=== PATIENT | female | born 1960 | race Asian ===

== ENCOUNTER 2020-08-14 12:33 | Inpatient (IN) | payer OTHER ==
[2020-08-14] VITALS (8 sets, daily range): BP systolic 100–178; BP diastolic 52–91
[~2020-08-14] VITALS: Ht 149.9 cm; Wt 100.3 kg
[2020-08-14 13:17] LABS: BASOPHILS % 0.3 % (0.0-2.0); EOSINOPHILS % 0.3 % (0.0-5.0); HEMATOCRIT. 35.8 % (36.0-48.0); HEMOGLOBIN. 11.8 g/dL (12.0-16.0); MEAN CORPUSCULAR VOLUME 90.9 fL (81.0-99.0); MEAN PLATELET VOLUME 8.4 fl (7.4-10.4); MONOCYTES % 8.1 % (2.0-8.0); NEUTROPHILS % 67.3 % (40.0-76.0); PLATELET 243 x1000/uL (130-400); RED BLOOD CELL COUNT 3.94 mill/uL (4.2-5.4); RED CELL DISTRIBUTION WIDTH 14.5 % (11.6-14.6)
[2020-08-14 13:23] LABS: CHLORIDE 94 mEq/L (98-107)
[2020-08-14] MEDS ORDERED: FUROSEMIDE 100MG/10ML VIAL IV STA (13:31)
[2020-08-14 13:32] LABS: BETA HYDROXYBUTYRATE 0.2 mMol/L (0.0-0.3)
[2020-08-14] MEDS ORDERED: CALCIUM CHLORIDE 1GM/10ML SYR IV ONE (13:45)
[2020-08-14] MEDS ORDERED: SODIUM BICARBONATE 8.4% 1 MEQ/ML 50ML SYR IV ONE (13:45)
[2020-08-14] MEDS ORDERED: INSULIN REGULAR (HUMULIN R) 300UNITS/3ML IV ONE (13:45)
[2020-08-14] MEDS ORDERED: SODIUM POLYSTYRENE SULFONATE 15 G/60 ML BOT PO ONE (13:45)
[2020-08-14] MEDS ORDERED: DEXTROSE 50% WATER 50ML SYRINGE IV ONE (13:45)
[2020-08-14 14:08] LABS: CLARITY URINE CLEAR (CLEAR); COLOR URINE YELLOW (YELLOW); KETONES URINE NEGATIVE (NEGATIVE); LEUKOCYTE ESTERASE URINE NEGATIVE (NEGATIVE); NITRITE URINE NEGATIVE (NEGATIVE); OCCULT BLOOD URINE NEGATIVE (NEGATIVE); PH URINE 6.5 (4.5-8.0); PROTEIN URINE NEGATIVE (NEGATIVE); SPECIFIC GRAVITY URINE 1.019 (1.005-1.030)
[2020-08-14 14:10] LABS: BG BASE EXCESS -0.7 mmol/L (-2.0-2.0); BG CARBOXYHEMOGLOBIN 0.4 % (0.5-1.5); BG FRACTION INSPIRED OXYGEN 28; BG HCO3 ACT 23.8 mmol/L (22.0-26.0); BG METHEMOGLOBIN 0.2 % (0.0-1.5); BG OXYHEMOGLOBIN 96.4 % (94.0-97.0); BG PCO2 39.2 mmHg (35.0-45.0); BG PH 7.402 (7.350-7.450); BG PO2 93.5 mmHg (75.0-100.0); BG SAMPLE SITE RIGHT RADIAL; BG TOTAL HEMOGLOBIN 12.7 g/dL (12.0-18.0); BG VENT MODE NASAL CANNULA
[2020-08-14] MEDS ORDERED: SODIUM BICARBONATE 8.4% 1 MEQ/ML 50ML SYR IV SCH (14:50)
[2020-08-14] MEDS ORDERED: BUDESONIDE 0.5MG/2ML NEB HHN SCH (18:00)
[2020-08-14] MEDS ORDERED: METF-816 PO (18:04)
[2020-08-14] MEDS ORDERED: FURO40TA5 MT (18:04)
[2020-08-14] MEDS ORDERED: ALBUTEROL SULFATE INH (18:04)
[2020-08-14] MEDS ORDERED: MONT10TA26 MT (18:04)
[2020-08-14] MEDS ORDERED: FAMO20TA8 MT (18:04)
[2020-08-14] MEDS ORDERED: INSU100I13 SQ (18:04)
[2020-08-14] MEDS ORDERED: ATOR-2 MT (18:04)
[2020-08-14] MEDS ORDERED: VITAMIN D PO (18:04)
[2020-08-14] MEDS ORDERED: LISI-604 MT (18:04)
[2020-08-14] MEDS ORDERED: ALBUTEROL INH (18:04)
[2020-08-14] MEDS ORDERED: APIX5TAB PO (18:04)
[2020-08-14] MEDS ORDERED: METOPROLOL SUCCINATE PO (18:04)
[2020-08-14] MEDS ORDERED: INSU100I24 SQ (18:04)
[2020-08-14] MEDS ORDERED: ARIP15TA7 MT (18:04)
[2020-08-14] MEDS ORDERED: DILT60TA35 PO (18:04)
[2020-08-14] MEDS ORDERED: SERT50TA12 MT (18:04)
[2020-08-14] MEDS ORDERED: FLUT1DIS3 INH (18:04)
[2020-08-14] MEDS ORDERED: DIVA-75 MT (18:04)
[2020-08-14] MEDS ORDERED: IPRA3AMP9 HHN (18:04)
[2020-08-14] MEDS ORDERED: ASPI-1497 PO (18:04)
[2020-08-14] MEDS ORDERED: DEXTROSE 50% WATER 50ML SYRINGE IV PRN (18:15)
[2020-08-14] MEDS ORDERED: IPRATROPIUM/ALBUTEROL 0.5-3(2.5)MG/3ML NEB HHN PRN (18:30)
[2020-08-14] MEDS: CEFEPIME 1,000 MG in DEXTROSE 5% WATER 50 ML IV SCH (19:59)
[2020-08-14] MEDS: ARIPIPRAZOLE 5MG TABLET PO SCH (20:10)
[2020-08-14] MEDS: ATORVASTATIN CALCIUM 40MG TABLET PO SCH (20:11)
[2020-08-14] MEDS: FAMOTIDINE 20MG TABLET PO SCH (20:11)
[2020-08-14] MEDS: IPRATROPIUM/ALBUTEROL 0.5-3(2.5)MG/3ML NEB HHN SCH ×2 (20:27→23:59)
[2020-08-14] MEDS: BUDESONIDE 0.5MG/2ML NEB HHN SCH (20:27)
[2020-08-14] MEDS: BLOOD SUGAR DIAGNOSTIC STRIP TEST SCH (20:34)
[2020-08-14] MEDS: MONTELUKAST SODIUM 10MG TABLET PO SCH (20:40)
[2020-08-14] MEDS: DIVALPROEX SODIUM 500MG DR TABLET PO SCH (20:41)
[2020-08-14] MEDS: SERTRALINE HCL 50MG TABLET PO SCH (20:41)
[2020-08-14] MEDS: INSULIN LISPRO 100 UNITS/ML SUBCUT SCH (20:44)
[2020-08-14] MEDS: METRONIDAZOLE 500 MG PREMIX 100 ML IV SCH (21:52)
[2020-08-14] MEDS ORDERED: INSULIN GLARGINE UD 100 UNITS/ML SYR SUBCUT SCH (22:00)
[2020-08-14] MEDS: ACETAMINOPHEN 325MG TABLET PO PRN (23:04)
[2020-08-15] VITALS (11 sets, daily range): BP systolic 96–117; BP diastolic 51–69
[2020-08-15] MEDS: IPRATROPIUM/ALBUTEROL 0.5-3(2.5)MG/3ML NEB HHN SCH ×5 (04:24→20:51)
[2020-08-15] MEDS: METRONIDAZOLE 500 MG PREMIX 100 ML IV SCH ×2 (04:54→09:23)
[2020-08-15 05:19] LABS: *AMPHETAMINES SCREEN URINE NEGATIVE (NEGATIVE); *BARBITURATES SCREEN URINE NEGATIVE (NEGATIVE); *BENZODIAZEPINES SCREEN URINE NEGATIVE (NEGATIVE); *COCAINE SCREEN URINE NEGATIVE (NEGATIVE)
[2020-08-15 05:20] LABS: CANNABINOID URINE SCREEN NEGATIVE (NEGATIVE); METHADONE URINE SCREEN NEGATIVE (NEGATIVE); OPIATES URINE SCREEN NEGATIVE (NEGATIVE); PHENCYCLIDINE URINE SCREEN NEGATIVE (NEGATIVE)
[2020-08-15] MEDS: CEFEPIME 1,000 MG in DEXTROSE 5% WATER 50 ML IV SCH ×2 (06:08→17:16)
[2020-08-15] MEDS: BLOOD SUGAR DIAGNOSTIC STRIP TEST SCH ×4 (06:19→20:51)
[2020-08-15 07:23] LABS: BASOPHILS % 0.4 % (0.0-2.0); EOSINOPHILS % 1.2 % (0.0-5.0); HEMATOCRIT. 31.9 % (36.0-48.0); HEMOGLOBIN. 10.6 g/dL (12.0-16.0); LYMPHOCYTES % 27.7 % (20.0-50.0); MEAN CORPUSCULAR HEMOGLOBIN 30.1 pg (28.0-32.0); MEAN CORPUSCULAR VOLUME 90.3 fL (81.0-99.0); MEAN PLATELET VOLUME 8.6 fl (7.4-10.4); MONOCYTES % 8.4 % (2.0-8.0); NEUTROPHILS % 62.3 % (40.0-76.0); PLATELET 187 x1000/uL (130-400); RED BLOOD CELL COUNT 3.53 mill/uL (4.2-5.4); RED CELL DISTRIBUTION WIDTH 14.3 % (11.6-14.6)
[2020-08-15 07:26] LABS: CHLORIDE 99 mEq/L (98-107)
[2020-08-15 07:39] LABS: TOTAL IRON BINDING CAPACITY 316 ug/dL (250-450)
[2020-08-15 07:41] LABS: FOLIC ACID (FOLATE) SERUM >20 ng/mL ng/mL (>5.38); T4 FREE 1.32 ng/dL (0.76-1.46)
[2020-08-15 07:43] LABS: FERRITIN 93 ng/mL (10-291)
[2020-08-15 07:53] LABS: VITAMIN B12 SERUM 365 pg/mL (211-911)
[2020-08-15] MEDS: DIVALPROEX SODIUM 500MG DR TABLET PO SCH (09:22)
[2020-08-15] MEDS: SERTRALINE HCL 50MG TABLET PO SCH (09:22)
[2020-08-15] MEDS: INSULIN LISPRO 100 UNITS/ML SUBCUT SCH ×7 (09:22→20:58)
[2020-08-15] MEDS: ACETAMINOPHEN 325MG TABLET PO PRN ×2 (10:10→18:24)
[2020-08-15] MEDS: BUDESONIDE 0.5MG/2ML NEB HHN SCH ×2 (11:34→20:50)
[2020-08-15] MEDS: INSULIN GLARGINE UD 100 UNITS/ML SYR SUBCUT SCH ×2 (12:52→22:00)
[2020-08-15] MEDS: MONTELUKAST SODIUM 10MG TABLET PO SCH (17:19)
[2020-08-15] MEDS: ATORVASTATIN CALCIUM 40MG TABLET PO SCH (20:58)
[2020-08-15] MEDS: FAMOTIDINE 20MG TABLET PO SCH (20:58)
[2020-08-15] MEDS: ARIPIPRAZOLE 5MG TABLET PO SCH (20:58)
[2020-08-16] VITALS (12 sets, daily range): BP systolic 99–148; BP diastolic 32–74
[2020-08-16] MEDS ORDERED: HYDROCODONE/ACETAMINOPHEN 5/325MG TABLET PO PRN (00:15)
[2020-08-16] MEDS ORDERED: ZOLPIDEM TARTRATE 5MG TABLET PO PRN (00:15)
[2020-08-16] MEDS: IPRATROPIUM/ALBUTEROL 0.5-3(2.5)MG/3ML NEB HHN SCH ×5 (00:57→16:07)
[2020-08-16] MEDS: CEFEPIME 1,000 MG in DEXTROSE 5% WATER 50 ML IV SCH ×2 (05:16→16:46)
[2020-08-16] MEDS: ACETAMINOPHEN 325MG TABLET PO PRN ×2 (05:24→19:57)
[2020-08-16] MEDS: BLOOD SUGAR DIAGNOSTIC STRIP TEST SCH ×4 (06:12→21:33)
[2020-08-16 06:41] LABS: BASOPHILS % 0.4 % (0.0-2.0); EOSINOPHILS % 2.3 % (0.0-5.0); HEMOGLOBIN. 11.8 g/dL (12.0-16.0); LYMPHOCYTES % 34.3 % (20.0-50.0); MEAN CORPUSCULAR HEMOGLOBIN 30.4 pg (28.0-32.0); MEAN CORPUSCULAR VOLUME 90.5 fL (81.0-99.0); MEAN PLATELET VOLUME 8.4 fl (7.4-10.4); MONOCYTES % 9.6 % (2.0-8.0); NEUTROPHILS % 53.4 % (40.0-76.0); PLATELET 196 x1000/uL (130-400); RED BLOOD CELL COUNT 3.87 mill/uL (4.2-5.4); RED CELL DISTRIBUTION WIDTH 14.6 % (11.6-14.6)
[2020-08-16] MEDS: INSULIN LISPRO 100 UNITS/ML SUBCUT SCH ×4 (07:19→21:32)
[2020-08-16] MEDS: BUDESONIDE 0.5MG/2ML NEB HHN SCH (08:08)
[2020-08-16] MEDS: DIVALPROEX SODIUM 500MG DR TABLET PO SCH (08:19)
[2020-08-16] MEDS: SERTRALINE HCL 50MG TABLET PO SCH (08:19)
[2020-08-16] MEDS ORDERED: INSULIN GLARGINE UD 100 UNITS/ML SYR SUBCUT SCH (10:00)
[2020-08-16] MEDS ORDERED: LORAZEPAM 0.5MG TABLET PO PRN (10:30)
[2020-08-16] MEDS: MONTELUKAST SODIUM 10MG TABLET PO SCH (16:25)
[2020-08-16] MEDS: FAMOTIDINE 20MG TABLET PO SCH (21:31)
[2020-08-16] MEDS: ARIPIPRAZOLE 5MG TABLET PO SCH (21:31)
[2020-08-16] MEDS: ATORVASTATIN CALCIUM 40MG TABLET PO SCH (21:31)
== END 2020-08-16 21:50 | disposition home or self-care (01) | DRG 133 ==
LOC: ER 12:33 → 3WST 13:47 → EDBEDREQ 14:02 → EDBEDREQSVC 14:02 → ENRESERV 14:20 → 3WST 08-15 15:13
PROVIDERS: ADMIT Internal Medicine; ATTEND Internal Medicine
DX: J96.20 Acute and chronic respiratory failure, unspecified whether with hypoxia or hypercapnia (principal); I13.0 Hypertensive heart and chronic kidney disease with heart failure and stage 1 through stage 4 chronic kidney disease, or unspecified chronic kidney disease; E11.65 Type 2 diabetes mellitus with hyperglycemia; E87.1 Hypo-osmolality and hyponatremia; E87.5 Hyperkalemia; D64.9 Anemia, unspecified; E11.22 Type 2 diabetes mellitus with diabetic chronic kidney disease; I50.43 Acute on chronic combined systolic (congestive) and diastolic (congestive) heart failure; I70.0 Atherosclerosis of aorta; I48.20 Chronic atrial fibrillation, unspecified; E66.01 Morbid (severe) obesity due to excess calories; N17.9 Acute kidney failure, unspecified; N18.9 Chronic kidney disease, unspecified; J44.9 Chronic obstructive pulmonary disease, unspecified; E78.5 Hyperlipidemia, unspecified; Z82.49 Family history of ischemic heart disease and other diseases of the circulatory system; Z79.01 Long term (current) use of anticoagulants; Z79.82 Long term (current) use of aspirin; Z79.4 Long term (current) use of insulin; Z79.899 Other long term (current) drug therapy; Z71.3 Dietary counseling and surveillance; Z68.41 Body mass index [BMI] 40.0-44.9, adult
CPT/HCPCS: 36415; 36600; 71045; 76770; 80048; 80053; 80305; 81003; 82010; 82375; 82550; 82607; 82728; 82746; 82805; 82962; 83036; 83540; 83550; 83735; 83880; 84439; 84443; 84481; 84484; 85025; 93005; 93306; 94640; 99291; J0692; J1815; J1940; J3490; J7060; J7626